=== PATIENT | female | born 1960 | race Caucasian/White ===

== ENCOUNTER 2020-12-29 14:26 | Inpatient (IN) | payer OTHER ==
[~2020-12-29] VITALS: Ht 162.6 cm; Wt 85.9 kg
[2020-12-29] MEDS ORDERED: IV NORMAL SALINE 1000ML BAG 1,000 ML IV ONE (14:30)
--- NOTE | 2020-12-29 15:27 | RAD ---
EXAM: Chest, single view. HISTORY: Fall. Syncope. COMPARISON: None. FINDINGS: A frontal view of the chest is obtained. There is lingular and left lower lobe atelectasis, infiltrate or scarring. There are suspected trace pleural effusions. The heart is normal in size. Th ere is no pneumothorax. IMPRESSION: Lingular and left lower lobe atelectasis, infiltrate or scarring likely superimposed on t race pleural effusions. Electronically signed by: Leena Hodge MD (12/29/2020 3:25 PM) [id number]
--- NOTE | 2020-12-29 15:42 | RAD ---
RS Compliance Statement: One or more of the following individualized dose reduction techniques were utilized for this examinat ion: 1. Automated exposure control 2. Adjustment of the mA and/or kV according to patient size 3. Use of iterative reconstruction technique CT HEAD AND CERVICAL SPINE WITHOUT CONTRAST History: Reason: FALL, OCCIPITAL LACERATION / Spl. Instructions: / History: Comparison: None. Procedure: Axial images are obtained of the head from the skull base through the vertex without IV co ntrast. Noncontrast helical CT of the cervical spine was performed. Axial, sagittal, and coronal rec onstructions were obtained. Findings: The ventricles and sulci are normal for the patient's age. There is mild periventricular white matter hypoattenuation. This is a nonspecific finding but is commonly due to chronic small vessel ischemic disease in a patient of this age. No mass-effect, midline shift, hemorrhage or obvious acute infarction is identified. Basilar cistern s are patent. Bone windows demonstrate no significant calvarial abnormality. Mild right occipital scalp hematoma. T here are a few foci of subcutaneous air. The visualized paranasal sinuses are clear. Mastoid air cells are well aerated. There is no evidence of acute fracture or acute malalignment of the cervical spine. The vertebral body height and alignment are maintained. There are no perched or jumped facet joints. There is mild degenerative endplate spurring. No significant disc space narrowing. There is mild fluid and air in the upper esophagus. Probable prior right carotid endarterectomy. The visualized lung apices are clear. IMPRESSION: 1. No acute intracranial abnormality. 2. No acute fracture of the cervical spine. Electronically signed by: Dave Montaño MD (12/29/2020 3:40 PM) [id number]
--- NOTE | 2020-12-29 15:46 | PHYS DOC ---
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 Patient states that she was amatory to the bathroom when she had a syncopal event where she fell down and struck the back of her head against the floor. EMS states they found her when she was conscious but mildly groggy. Noted with large amount of blood from the laceration to posterior scalp. Denies any preceding illness, nausea, vomiting, dizziness or lightheadedness. (YARIEL ACUÑA MD) Review of Systems Review of Systems Constitutional: Denies fever or chills [] Eyes: Denies change in visual acuity, redness, or eye pain [] HENT: Denies nasal congestion or sore throat [] Respiratory: Denies cough or shortness of breath [] Cardiovascular: No additional information not addressed in HPI [] GI: Denies abdominal pain, nausea, vomiting, bloody stools or diarrhea [] : Denies dysuria or hematuria [] Musculoskeletal: Denies back pain or joint pain [] Integument: Denies rash or skin lesions [] Neurologic: Denies headache, focal weakness or sensory changes [] Endocrine: Denies polyuria or polydipsia [] All other systems were reviewed and found to be within normal limits, except as documented in this note. (YARIEL ACUÑA MD) Current Medications Current Medications Current Medications Medications (Trade) Dose Ordered Sig/Anand Start Time Stop Time Status Last Admin Dose Admin Lidocaine/ Epinephrine (LIDOCAINE 2%-EPI 1:100,000 multi-dose) 20 ml 1X ONCE 12/29/20 16:15 12/29/20 16:16 DC 12/29/20 18:27 20 ML Morphine Sulfate (Morphine Sulfate) 4 mg PRN Q2HR PRN 12/29/20 18:45 12/30/20 18:44 Ondansetron HCl (Zofran) 4 mg PRN Q8HRS PRN 12/29/20 18:45 12/30/20 18:44 Sodium Chloride 1,000 ml @ 1,000 mls/hr 1X ONCE 12/29/20 14:30 12/29/20 15:29 DC 12/29/20 15:42 1,000 MLS/HR ([facility]) Allergies Allergies ([facility]) Physical Exam Physical Exam Constitutional: Well developed, well nourished, no acute distress, non-toxic a ppearance. [] HENT: Normocephalic, 5cm posterior scalp laceration, bilateral external ears normal, oropharynx moist, no oral exudates, nose normal. [] Eyes: PERRLA, EOMI, conjunctiva normal, no discharge. [] Neck: Normal range of motion, no tenderness, supple, no stridor. [] Cardiovascular:Heart rate regular rhythm, no murmur [] Lungs & Thorax: Bilateral breath sounds clear to auscultation [] Abdomen: Bowel sounds normal, soft, no tenderness, no masses, no pulsatile masses. [] Skin: Warm, dry, no erythema, no rash. [] Back: No tenderness, no CVA tenderness. [] Extremities: No tenderness, no cyanosis, no clubbing, ROM intact, no edema. [] Neurologic: Alert and oriented X 3, normal motor function, normal sensory function, no focal deficits noted. [] Psychologic: Affect normal, judgement normal, mood normal. [] (YARIEL ACUÑA MD) Current Patient Data Vital Signs Vital Signs Date Time Temp Pulse Resp B/P (MAP) Pulse Ox O2 Delivery O2 Flow Rate FiO2 12/29/20 19:48 60 20 158/72 (100) 96 Nasal Cannula 2.0 12/29/20 14:45 98.0 98.0 ([facility]) Lab Values Laboratory Tests Test 12/29/20 15:35 White Blood Count 6.3 x10^3/uL (4.0-11.0) Red Blood Count 4.70 x10^6/uL (3.50-5.40) Hemoglobin 14.1 g/dL (12.0-15.5) Hematocrit 44.0 % (36.0-47.0) Mean Corpuscular Volume 94 fL (79-100) Mean Corpuscular Hemoglobin 30 pg (25-35) Mean Corpuscular Hemoglobin Concent 32 g/dL (31-37) Red Cell Distribution Width 14.5 % (11.5-14.5) Platelet Count 124 x10^3/uL (140-400) L Neutrophils (%) (Auto) 85 % (31-73) H Lymphocytes (%) (Auto) 10 % (24-48) L Monocytes (%) (Auto) 4 % (0-9) Eosinophils (%) (Auto) 1 % (0-3) Basophils (%) (Auto) 1 % (0-3) Neutrophils # (Auto) 5.4 x10^3/uL (1.8-7.7) Lymphocytes # (Auto) 0.6 x10^3/uL (1.0-4.8) L Monocytes # (Auto) 0.2 x10^3/uL (0.0-1.1) Eosinophils # (Auto) 0.0 x10^3/uL (0.0-0.7) Basophils # (Auto) 0.1 x10^3/uL (0.0-0.2) Sodium Level 148 mmol/L (136-145) H Potassium Level 4.1 mmol/L (3.5-5.1) Chloride Level 112 mmol/L (98-107) H Carbon Dioxide Level 31 mmol/L (21-32) Anion Gap 5 (6-14) L Blood Urea Nitrogen 13 mg/dL (7-20) Creatinine 0.9 mg/dL (0.6-1.0) Estimated GFR (Cockcroft-Gault) 63.7 BUN/Creatinine Ratio 14 (6-20) Glucose Level 90 mg/dL (70-99) Calcium Level 8.9 mg/dL (8.5-10.1) Magnesium Level 2.4 mg/dL (1.8-2.4) Total Bilirubin 1.4 mg/dL (0.2-1.0) H Aspartate Amino Transferase (AST) 21 U/L (15-37) Alanine Aminotransferase (ALT) 21 U/L (14-59) Alkaline Phosphatase 185 U/L (46-116) H Total Protein 6.8 g/dL (6.4-8.2) Albumin 3.7 g/dL (3.4-5.0) Albumin/Globulin Ratio 1.2 (1.0-1.7) Laboratory Tests 12/29/20 15:35 Laboratory Tests 12/29/20 15:35 [facility] Lab Values Laboratory Tests Test 12/29/20 15:35 White Blood Count 6.3 x10^3/uL (4.0-11.0) Red Blood Count 4.70 x10^6/uL (3.50-5.40) Hemoglobin 14.1 g/dL (12.0-15.5) Hematocrit 44.0 % (36.0-47.0) Mean Corpuscular Volume 94 fL (79-100) Mean Corpuscular Hemoglobin 30 pg (25-35) Mean Corpuscular Hemoglobin Concent 32 g/dL (31-37) Red Cell Distribution Width 14.5 % (11.5-14.5) Platelet Count 124 x10^3/uL (140-400) L Neutrophils (%) (Auto) 85 % (31-73) H Lymphocytes (%) (Auto) 10 % (24-48) L Monocytes (%) (Auto) 4 % (0-9) Eosinophils (%) (Auto) 1 % (0-3) Basophils (%) (Auto) 1 % (0-3) Neutrophils # (Auto) 5.4 x10^3/uL (1.8-7.7) Lymphocytes # (Auto) 0.6 x10^3/uL (1.0-4.8) L Monocytes # (Auto) 0.2 x10^3/uL (0.0-1.1) Eosinophils # (Auto) 0.0 x10^3/uL (0.0-0.7) Basophils # (Auto) 0.1 x10^3/uL (0.0-0.2) Sodium Level 148 mmol/L (136-145) H Potassium Level 4.1 mmol/L (3.5-5.1) Chloride Level 112 mmol/L (98-107) H Carbon Dioxide Level 31 mmol/L (21-32) Anion Gap 5 (6-14) L Blood Urea Nitrogen 13 mg/dL (7-20) Creatinine 0.9 mg/dL (0.6-1.0) Estimated GFR (Cockcroft-Gault) 63.7 BUN/Creatinine Ratio 14 (6-20) Glucose Level 90 mg/dL (70-99) Calcium Level 8.9 mg/dL (8.5-10.1) Magnesium Level 2.4 mg/dL (1.8-2.4) Total Bilirubin 1.4 mg/dL (0.2-1.0) H Aspartate Amino Transferase (AST) 21 U/L (15-37) Alanine Aminotransferase (ALT) 21 U/L (14-59) Alkaline Phosphatase 185 U/L (46-116) H Total Protein 6.8 g/dL (6.4-8.2) Albumin 3.7 g/dL (3.4-5.0) Albumin/Globulin Ratio 1.2 (1.0-1.7) Laboratory Tests 12/29/20 15:35 Laboratory Tests 12/29/20 15:35 (YARIEL ACUÑA MD) EKG EKG [] (YARIEL ACUÑA MD) Radiology/Procedures Radiology/Procedures [] (YARIEL ACUÑA MD) Radiology/Procedures Indication: Posterior head laceration over scalp Procedure: The patient was placed in the appropriate position/LLR. The area was then copiously irrigated by RN. The laceration was closed with 7 gabino. The wound area was then dressed with triple antibiotic ointment. Total repaired wound length: approximately 5 cm (flap at proximal laceration, no skin at distal laceration-wound margins aligned as best as possible). Other Items: none The patient tolerated the procedure . Complications: None. Patient had been admitted to the hospitalist by Dr. Ravindra lei at shift change for syncope evaluation. I performed scalp laceration repair. [facility]) Course & Med Decision Making Course & Med Decision Making Pertinent Labs and Imaging studies reviewed. (See chart for details) 60F sent in the emergency department after a syncopal event with evidence of acute head trauma which does raise concern for any intracranial hemorrhage or other significant underlying trauma. Will initiate work-up to evaluate any underlying cause of the patient's syncope and perform a CT scan of the head cervical spine to make sure there is no significant underlying etiology. Patient does have a posterior head laceration that will require repair (YARIEL ACUÑA MD) Dragon Disclaimer Dragon Disclaimer This electronic medical record was generated, in whole or in part, using a voice recognition dictation system. (YARIEL ACUÑA MD) Departure Departure Impression: Primary Impression: Syncope Additional Impressions: Acute head injury Scalp laceration Brain concussion Disposition: ADMITTED INPATIENT Condition: STABLE Referrals: LORI XAVIER MD (PCP) Problem Qualifiers YARIEL ACUÑA MD Dec 29, 2020 15:46 GINI KAUR DO Dec 29, 2020 21:01
[2020-12-29 15:52] LABS: BASO # 0.1 x10^3/uL (0.0-0.2); BASO % 1 % (0-3); EOS % 1 % (0-3); HEMOGLOBIN 14.1 g/dL (12.0-15.5); LYMPH # 0.6 x10^3/uL (1.0-4.8); LYMPH % 10 % (24-48); MEAN CORPUSCULAR HEMOGLOBIN 30 pg (25-35); MEAN CORPUSCULAR HGB CONC 32 g/dL (31-37); MEAN CORPUSCULAR VOLUME 94 fL (79-100); MONO # 0.2 x10^3/uL (0.0-1.1); MONO % 4 % (0-9); NEUT # 5.4 x10^3/uL (1.8-7.7); NEUT % 85 % (31-73); PLATELET COUNT 124 x10^3/uL (140-400); RED CELL DISTRIBUTION WIDTH 14.5 % (11.5-14.5); WHITE BLOOD COUNT 6.3 x10^3/uL (4.0-11.0)
--- NOTE | 2020-12-29 15:54 | EKG ---
[facility] [address] [place] [address] Test Date: 2020-12-29 Test Time: 14:35:26 Pat Name: DONALD CREWS Department: Room: Gender: F Transition Coach: EARLINE : 1960 Requested By: YARIEL ACUÑA Order Number: [id number] Reading MD: Measurements Intervals [place] Rate: 61 P: 30 AK: 180 QRS: -31 QRSD: 130 T: 34 QT: 378 QTc: 382 Interpretive Statements SINUS RHYTHM ABNORMAL LEFT AXIS DEVIATION NON SPECIFIC INTRAVENTRICULAR BLOCK ABNORMAL ECG RI6.02 No previous ECG available for comparison
[2020-12-29 16:03] LABS: CALCIUM 8.9 mg/dL (8.5-10.1); CREATININE 0.9 mg/dL (0.6-1.0); GFR 63.7; POTASSIUM 4.1 mmol/L (3.5-5.1)
[2020-12-29 16:09] LABS: ALBUMIN 3.7 g/dL (3.4-5.0); ALBUMIN/GLOBULIN RATIO 1.2 (1.0-1.7); MAGNESIUM 2.4 mg/dL (1.8-2.4); TOTAL BILIRUBIN 1.4 mg/dL (0.2-1.0); TOTAL PROTEIN 6.8 g/dL (6.4-8.2)
[2020-12-29] MEDS ORDERED: LIDOCAINE 2%/EPI 1:100,000 20 ML VIAL. INJ ONE (16:15)
[2020-12-29] MEDS ORDERED: MORPHINE SULFATE 4 MG/ML VIAL. IV PRN (18:45)
[2020-12-29] MEDS ORDERED: ONDANSETRON PF 4 MG/2 ML VIAL. IV PRN (18:45)
--- NOTE | 2020-12-29 19:51 | PDOC1 ---
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 Patient states that she was amatory to the bathroom when she had a syncopal event where she fell down and struck the back of her head against the floor. EMS states they found her when she was conscious but mildly groggy. Noted with large amount of blood from the laceration to posterior scalp. Denies any preceding illness, nausea, vomiting, dizziness or lightheadedness. Past Medical/Surgical History: PMH/PSH: Past Medical History: Anxiety, myotonic dystrophy, LBBB, tremors Past Surgical History: Tubal ligation, facial tumor, laparascopy Allergies: Allergies: Coded Allergies: Sulfa (Sulfonamide Antibiotics) (Verified Allergy, Unknown, 12/29/20) Family History: Family History: Reviewed with no relevant findings Social History: Social History: Smoking Status: Former Smoker Alcohol Use: None Current Medications: Current Medications Current Medications Sodium Chloride 1,000 ml @ 1,000 mls/hr 1X ONCE IV Last administered on 12/29/20at 15:42; Start 12/29/20 at 14:30; Stop 12/29/20 at 15:29; Status DC Lidocaine/ Epinephrine (LIDOCAINE 2%-EPI 1:100,000 multi-dose) 20 ml 1X ONCE INJ Last administered on 12/29/20at 18:27; Start 12/29/20 at 16:15; Stop 12/29/20 at 16:16; Status DC Ondansetron HCl (Zofran) 4 mg PRN Q8HRS PRN IV NAUSEA/VOMITING; Start 12/29/20 at 18:45; Stop 12/30/20 at 18:44 Morphine Sulfate (Morphine Sulfate) 4 mg PRN Q2HR PRN IV PAIN; Start 12/29/20 at 18:45; Stop 12/30/20 at 18:44 ROS: Review of Systems Review of System REVIEW OF SYSTEMS: GENERAL: Denies weakness SKIN: No bruising, hair changes or rashes. EYES: No blurred, double or loss of vision. NOSE AND THROAT: No history of nosebleeds, hoarseness or sore throat. HEART: No history of palpitations, chest pain or shortness of breath on exertion. LUNGS: Denies cough, hemoptysis, wheezing or shortness of breath. GASTROINTESTINAL: Denies changes in appetite, nausea, vomiting, diarrhea or constipation. GENITOURINARY: No history of frequency, urgency, hesitancy or nocturia. NEUROLOGIC: Denies history of numbness, tingling, or tremor. PSYCHIATRIC: No history of panic, anxiety or depression. ENDOCRINE: No history of heat or cold intolerance, polyuria or polydipsia. EXTREMITIES: Denies joint pain, pain on walking or stiffness. Physical Exam: Vital Signs: Vital Signs Date Time Temp Pulse Resp B/P (MAP) Pulse Ox O2 Delivery O2 Flow Rate FiO2 12/29/20 14:45 98.0 68 16 139/83 (101) 88 Room Air 98.0 Physcial Exam: GEN: No apparent distress. Alert and oriented HEENT: Normal cephalic, atraumatic, external auditory canals are patent EYES: Extraocular muscles are intact, pupil are equally round and reactive to light and accommodation MUSCULOSKELETAL: Well developed , well nourished, good range of motion ENDOCRINE: No thyromegaly was palpated LYMPHATICS: No cervical chain or axillary nodes were noted HEMATOPOIETIC: No bruising NECK: Supple, no JVD, no thyromegaly was noted LUNGS: Clear to auscultation in all lung minor without rhonchi or wheezing HEART: RRR, S!, S2 present. Peripheral pulses intact, no obvious murmurs noted ABDOMEN: Soft, nontender. Positive bowel sounds, no organomegaly, normal bowel sounds EXTREMITIES: Without clubbing, cyanosis, or edema. Pedal pulses intact. Negative Homans sign NEUROLOGIC: Normal speech and tone. A&O x 3, moves all extremities, no obvious focal deficits PSYCHIATRIC: Normal affect, normal mood. Stable SKIN: No ulcerations or rashes, good skin turgor, no jaundice VASCULAR: Good capillary refill, neurovascular bundle appears to be intact Labs: Labs: Laboratory Tests Test 12/29/20 15:35 White Blood Count 6.3 x10^3/uL (4.0-11.0) Red Blood Count 4.70 x10^6/uL (3.50-5.40) Hemoglobin 14.1 g/dL (12.0-15.5) Hematocrit 44.0 % (36.0-47.0) Mean Corpuscular Volume 94 fL (79-100) Mean Corpuscular Hemoglobin 30 pg (25-35) Mean Corpuscular Hemoglobin Concent 32 g/dL (31-37) Red Cell Distribution Width 14.5 % (11.5-14.5) Platelet Count 124 x10^3/uL (140-400) Neutrophils (%) (Auto) 85 % (31-73) Lymphocytes (%) (Auto) 10 % (24-48) Monocytes (%) (Auto) 4 % (0-9) Eosinophils (%) (Auto) 1 % (0-3) Basophils (%) (Auto) 1 % (0-3) Neutrophils # (Auto) 5.4 x10^3/uL (1.8-7.7) Lymphocytes # (Auto) 0.6 x10^3/uL (1.0-4.8) Monocytes # (Auto) 0.2 x10^3/uL (0.0-1.1) Eosinophils # (Auto) 0.0 x10^3/uL (0.0-0.7) Basophils # (Auto) 0.1 x10^3/uL (0.0-0.2) Sodium Level 148 mmol/L (136-145) Potassium Level 4.1 mmol/L (3.5-5.1) Chloride Level 112 mmol/L (98-107) Carbon Dioxide Level 31 mmol/L (21-32) Anion Gap 5 (6-14) Blood Urea Nitrogen 13 mg/dL (7-20) Creatinine 0.9 mg/dL (0.6-1.0) Estimated GFR (Cockcroft-Gault) 63.7 BUN/Creatinine Ratio 14 (6-20) Glucose Level 90 mg/dL (70-99) Calcium Level 8.9 mg/dL (8.5-10.1) Magnesium Level 2.4 mg/dL (1.8-2.4) Total Bilirubin 1.4 mg/dL (0.2-1.0) Aspartate Amino Transf (AST/SGOT) 21 U/L (15-37) Alanine Aminotransferase (ALT/SGPT) 21 U/L (14-59) Alkaline Phosphatase 185 U/L (46-116) Total Protein 6.8 g/dL (6.4-8.2) Albumin 3.7 g/dL (3.4-5.0) Albumin/Globulin Ratio 1.2 (1.0-1.7) Laboratory Tests Test 12/29/20 15:35 White Blood Count 6.3 x10^3/uL (4.0-11.0) Red Blood Count 4.70 x10^6/uL (3.50-5.40) Hemoglobin 14.1 g/dL (12.0-15.5) Hematocrit 44.0 % (36.0-47.0) Mean Corpuscular Volume 94 fL (79-100) Mean Corpuscular Hemoglobin 30 pg (25-35) Mean Corpuscular Hemoglobin Concent 32 g/dL (31-37) Red Cell Distribution Width 14.5 % (11.5-14.5) Platelet Count 124 x10^3/uL (140-400) Neutrophils (%) (Auto) 85 % (31-73) Lymphocytes (%) (Auto) 10 % (24-48) Monocytes (%) (Auto) 4 % (0-9) Eosinophils (%) (Auto) 1 % (0-3) Basophils (%) (Auto) 1 % (0-3) Neutrophils # (Auto) 5.4 x10^3/uL (1.8-7.7) Lymphocytes # (Auto) 0.6 x10^3/uL (1.0-4.8) Monocytes # (Auto) 0.2 x10^3/uL (0.0-1.1) Eosinophils # (Auto) 0.0 x10^3/uL (0.0-0.7) Basophils # (Auto) 0.1 x10^3/uL (0.0-0.2) Sodium Level 148 mmol/L (136-145) Potassium Level 4.1 mmol/L (3.5-5.1) Chloride Level 112 mmol/L (98-107) Carbon Dioxide Level 31 mmol/L (21-32) Anion Gap 5 (6-14) Blood Urea Nitrogen 13 mg/dL (7-20) Creatinine 0.9 mg/dL (0.6-1.0) Estimated GFR (Cockcroft-Gault) 63.7 BUN/Creatinine Ratio 14 (6-20) Glucose Level 90 mg/dL (70-99) Calcium Level 8.9 mg/dL (8.5-10.1) Magnesium Level 2.4 mg/dL (1.8-2.4) Total Bilirubin 1.4 mg/dL (0.2-1.0) Aspartate Amino Transf (AST/SGOT) 21 U/L (15-37) Alanine Aminotransferase (ALT/SGPT) 21 U/L (14-59) Alkaline Phosphatase 185 U/L (46-116) Total Protein 6.8 g/dL (6.4-8.2) Albumin 3.7 g/dL (3.4-5.0) Albumin/Globulin Ratio 1.2 (1.0-1.7) Images: Images PROCEDURE: PORTABLE CHEST 1V IMPRESSION: Lingular and left lower lobe atelectasis, infiltrate or scarring likely superimposed on trace pleural effusions. . Negative CT head Assessment/Plan Assessment/Plan Syncope possible vasovagal, orthostatic hypotension or cardiovascular etiology Hypernatremia, hyperchloremia suggestive of dehydration Elevated alkaline phosphatase History of myotonic dystrophy, patient uses trilogy at home History of left bundle branch block Admit to medicine for further work-up Cardiology consult Pending echocardiogram Continue telemetry monitoring Fall precautions Orthostatic vital signs Hold all centrally acting medications Pending medication reconciliation Ambulation for DVT prophylaxis Protonix GI prophylaxis ADA diet Full code Discussed with RN and SW Disposition inpatient management as above Surrogate decision maker is the Justifications for Admission Other Justification JEB GLOVER MD Dec 29, 2020 19:51
[2020-12-29] MEDS ORDERED: DEXTROSE 50% 25 GM / 50ML DISP.SYRIN. IV PRN (20:00)
[2020-12-29] MEDS ORDERED: SENNOSIDES 8.6 MG TABLET PO PRN (20:00)
[2020-12-29] MEDS ORDERED: ONDANSETRON PF 4 MG/2 ML VIAL. IVP PRN (20:00)
[2020-12-29] MEDS ORDERED: DOCUSATE SODIUM 100 MG CAPSULE. PO PRN (20:00)
[2020-12-29] MEDS ORDERED: ACETAMINOPHEN 325 MG TABLET. PO PRN (20:00)
[2020-12-29] MEDS ORDERED: NEOMY/BACITR/POLYMYXIN OINT PACKET. TP ONE (21:30)
[2020-12-29 22:30] VITALS: BP 101/63
[2020-12-29] MEDS: IV NORMAL SALINE 1000ML BAG 1,000 ML IV SCH (23:11)
[2020-12-30] MEDS ORDERED: ONDA4TAB12 PO (01:00)
[2020-12-30] MEDS ORDERED: DIAZ5TAB4 PO (01:00)
[2020-12-30] MEDS ORDERED: TIOT18CA IH (01:00)
[2020-12-30] MEDS ORDERED: FOLI0.8C PO (01:00)
[2020-12-30] MEDS ORDERED: CYAN500T17 PO (01:00)
[2020-12-30] MEDS ORDERED: VITA1TAB31 PO (01:00)
[2020-12-30] MEDS ORDERED: LOPE2TAB27 PO (01:00)
[2020-12-30 03:30] VITALS: BP 102/53
[2020-12-30] MEDS: IV NORMAL SALINE 1000ML BAG 1,000 ML IV SCH (05:58)
[2020-12-30 07:00] VITALS: BP 115/61
[2020-12-30 07:05] VITALS: BP 140/78
[2020-12-30 07:10] VITALS: BP 139/66
[2020-12-30 07:18] LABS: BASO % 1 % (0-3); EOS # 0.1 x10^3/uL (0.0-0.7); EOS % 1 % (0-3); HEMATOCRIT 43.4 % (36.0-47.0); HEMOGLOBIN 13.9 g/dL (12.0-15.5); LYMPH # 0.9 x10^3/uL (1.0-4.8); LYMPH % 16 % (24-48); MEAN CORPUSCULAR HEMOGLOBIN 30 pg (25-35); MEAN CORPUSCULAR HGB CONC 32 g/dL (31-37); MEAN CORPUSCULAR VOLUME 95 fL (79-100); MONO # 0.3 x10^3/uL (0.0-1.1); MONO % 5 % (0-9); NEUT # 4.4 x10^3/uL (1.8-7.7); NEUT % 78 % (31-73); PLATELET COUNT 118 x10^3/uL (140-400); RED BLOOD COUNT 4.59 x10^6/uL (3.50-5.40); RED CELL DISTRIBUTION WIDTH 14.6 % (11.5-14.5); WHITE BLOOD COUNT 5.7 x10^3/uL (4.0-11.0)
[2020-12-30 08:03] LABS: CALCIUM 8.5 mg/dL (8.5-10.1); CREATININE 0.7 mg/dL (0.6-1.0); GFR 85.1; MAGNESIUM 2.5 mg/dL (1.8-2.4); POTASSIUM 3.8 mmol/L (3.5-5.1)
[2020-12-30 11:00] VITALS: BP 107/65
--- NOTE | 2020-12-30 11:48 | PDOC ---
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 Patient states that she was amatory to the bathroom when she had a syncopal event where she fell down and struck the back of her head against the floor. EMS states they found her when she was conscious but mildly groggy. Noted with large amount of blood from the laceration to posterior scalp. Denies any preceding illness, nausea, vomiting, dizziness or lightheadedness. Vitals/I&O Vitals/I&O: Vital Signs Date Time Temp Pulse Resp B/P (MAP) Pulse Ox O2 Delivery O2 Flow Rate FiO2 12/30/20 11:00 97.9 65 20 107/65 (79) 97 Nasal Cannula 2.0 97.9 I & O 12/29/20 12/29/20 12/30/20 15:00 23:00 07:00 Intake Total 1000 ml 180 ml Output Total 200 ml Balance 1000 ml -20 ml Physical Exam General: Other (sleeping) Heart: Regular rate Lungs: Clear Abdomen: Soft Extremities: No cyanosis Skin: No rashes Labs Labs: Laboratory Tests Test 12/29/20 15:35 12/30/20 06:10 White Blood Count 6.3 x10^3/uL (4.0-11.0) 5.7 x10^3/uL (4.0-11.0) Red Blood Count 4.70 x10^6/uL (3.50-5.40) 4.59 x10^6/uL (3.50-5.40) Hemoglobin 14.1 g/dL (12.0-15.5) 13.9 g/dL (12.0-15.5) Hematocrit 44.0 % (36.0-47.0) 43.4 % (36.0-47.0) Mean Corpuscular Volume 94 fL (79-100) 95 fL (79-100) Mean Corpuscular Hemoglobin 30 pg (25-35) 30 pg (25-35) Mean Corpuscular Hemoglobin Concent 32 g/dL (31-37) 32 g/dL (31-37) Red Cell Distribution Width 14.5 % (11.5-14.5) 14.6 % (11.5-14.5) Platelet Count 124 x10^3/uL (140-400) 118 x10^3/uL (140-400) Neutrophils (%) (Auto) 85 % (31-73) 78 % (31-73) Lymphocytes (%) (Auto) 10 % (24-48) 16 % (24-48) Monocytes (%) (Auto) 4 % (0-9) 5 % (0-9) Eosinophils (%) (Auto) 1 % (0-3) 1 % (0-3) Basophils (%) (Auto) 1 % (0-3) 1 % (0-3) Neutrophils # (Auto) 5.4 x10^3/uL (1.8-7.7) 4.4 x10^3/uL (1.8-7.7) Lymphocytes # (Auto) 0.6 x10^3/uL (1.0-4.8) 0.9 x10^3/uL (1.0-4.8) Monocytes # (Auto) 0.2 x10^3/uL (0.0-1.1) 0.3 x10^3/uL (0.0-1.1) Eosinophils # (Auto) 0.0 x10^3/uL (0.0-0.7) 0.1 x10^3/uL (0.0-0.7) Basophils # (Auto) 0.1 x10^3/uL (0.0-0.2) 0.0 x10^3/uL (0.0-0.2) Sodium Level 148 mmol/L (136-145) 151 mmol/L (136-145) Potassium Level 4.1 mmol/L (3.5-5.1) 3.8 mmol/L (3.5-5.1) Chloride Level 112 mmol/L (98-107) 113 mmol/L (98-107) Carbon Dioxide Level 31 mmol/L (21-32) 30 mmol/L (21-32) Anion Gap 5 (6-14) 8 (6-14) Blood Urea Nitrogen 13 mg/dL (7-20) 11 mg/dL (7-20) Creatinine 0.9 mg/dL (0.6-1.0) 0.7 mg/dL (0.6-1.0) Estimated GFR (Cockcroft-Gault) 63.7 85.1 BUN/Creatinine Ratio 14 (6-20) Glucose Level 90 mg/dL (70-99) 74 mg/dL (70-99) Calcium Level 8.9 mg/dL (8.5-10.1) 8.5 mg/dL (8.5-10.1) Magnesium Level 2.4 mg/dL (1.8-2.4) 2.5 mg/dL (1.8-2.4) Total Bilirubin 1.4 mg/dL (0.2-1.0) Aspartate Amino Transf (AST/SGOT) 21 U/L (15-37) Alanine Aminotransferase (ALT/SGPT) 21 U/L (14-59) Alkaline Phosphatase 185 U/L (46-116) Total Protein 6.8 g/dL (6.4-8.2) Albumin 3.7 g/dL (3.4-5.0) Albumin/Globulin Ratio 1.2 (1.0-1.7) Phosphorus Level 3.0 mg/dL (2.6-4.7) Assessment and Plan Assessmemt and Plan Problems Medical Problems: (1) Acute head injury Status: Acute (2) Brain concussion Status: Acute (3) Scalp laceration Status: Acute (4) Syncope Status: Acute Assessment Syncope possible vasovagal, orthostatic hypotension or cardiovascular etiology Hypernatremia, hyperchloremia suggestive of dehydration Elevated alkaline phosphatase History of myotonic dystrophy, 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 Medications: Current Medications Medications (Trade) Dose Ordered Sig/Anand Route PRN Reason Start Time Stop Time Status Last Admin Dose Admin Sodium Chloride 1,000 ml @ 1,000 mls/hr 1X ONCE IV 12/29/20 14:30 12/29/20 15:29 DC 12/29/20 15:42 Lidocaine/ Epinephrine (LIDOCAINE 2%-EPI 1:100,000 multi-dose) 20 ml 1X ONCE INJ 12/29/20 16:15 12/29/20 16:16 DC 12/29/20 18:27 Sodium Chloride 1,000 ml @ 100 mls/hr Q10H IV 12/29/20 20:00 12/30/20 05:58 Acetaminophen (Tylenol) 650 mg PRN Q4HRS PRN PO TEMP OVER 100.4F OR MILD PAIN 12/29/20 20:00 12/29/20 21:46 Neomycin/ Polymyxin/ Bacitracin (Triple Antibiotic Ointment) 1 pkt 1X ONCE TP 12/29/20 21:30 12/29/20 21:31 DC 12/29/20 22:02 Justifications for Admission Syncope Indications Is patient dehydrated?: Yes Justification for admission: There is concern that patient may be severely dehydrated accounting for the syncope. Patient needs inpatient level of care for further evaluation and management. Other Justification PATIENCE SHARMA III DO Dec 30, 2020 11:48
--- NOTE | 2020-12-30 12:02 | PDOC2 ---
TIAN MOSHER [employer]MENTATION LEAD 12/30/20 1202: CARDIAC CONSULT DATE OF CONSULT Date of Consult DATE: 12/30/20 TIME: 11:59 REASON FOR CONSULT Reason for Consult: syncope REFERRING PHYSICIAN Referring Physician: Dr. Roman SOURCE Source: Chart review, Patient HISTORY OF PRESENT ILLNESS HISTORY OF PRESENT ILLNESS This is a 60 yo female, with a history of myotonic dystrophy, who presented secondary to syncope episode while ambulated with walker yesterday at [facility]. Patient reports that she was walking and just passed out without warning. Fell backwards, striking her head. Suffered laceration. Patient denies any precipita ting dizziness, diaphoresis, palpitations, or chest pain. Reports having multiple similar episodes, which have all been without warning. 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) FAMILY HISTORY Family History: Diabetes, Other (cirrhosis, myotonic dystrophy) SOCIAL HISTORY Smoke: No ALCOHOL: none Drugs: None Lives: with Family CURRENT MEDICATIONS CURRENT MEDICATIONS Current Medications Medications (Trade) Dose Ordered Sig/Anand Route PRN Reason Start Time Stop Time Status Last Admin Dose Admin Sodium Chloride 1,000 ml @ 1,000 mls/hr 1X ONCE IV 12/29/20 14:30 12/29/20 15:29 DC 12/29/20 15:42 Lidocaine/ Epinephrine (LIDOCAINE 2%-EPI 1:100,000 multi-dose) 20 ml 1X ONCE INJ 12/29/20 16:15 12/29/20 16:16 DC 12/29/20 18:27 Sodium Chloride 1,000 ml @ 100 mls/hr Q10H IV 12/29/20 20:00 12/30/20 05:58 Acetaminophen (Tylenol) 650 mg PRN Q4HRS PRN PO TEMP OVER 100.4F OR MILD PAIN 12/29/20 20:00 12/29/20 21:46 Neomycin/ Polymyxin/ Bacitracin (Triple Antibiotic Ointment) 1 pkt 1X ONCE TP 12/29/20 21:30 12/29/20 21:31 DC 12/29/20 22:02 ALLERGIES ALLERGIES: Coded Allergies: Sulfa (Sulfonamide Antibiotics) (Verified Allergy, Intermediate, 12/29/20) ROS Review of System 14 point ROS conducted with pertinent positives noted above in HPI PHYSICAL EXAM General: Alert, Oriented X3, Cooperative, No acute distress HEENT: Atraumatic Lungs: Clear to auscultation Heart: Regular rate Abdomen: Soft, No tenderness Extremities: No edema, Normal pulses Skin: No significant lesion Neuro: Normal speech, Sensation intact Psych/Mental Status: Mood NL MUSCULOSKELETAL: Osteoarthritic changes both hands VITALS/I&O VITALS/I&O: Vital Signs Date Time Temp Pulse Resp B/P (MAP) Pulse Ox O2 Delivery O2 Flow Rate FiO2 12/30/20 11:00 97.9 65 20 107/65 (79) 97 Nasal Cannula 2.0 97.9 I & O 12/29/20 12/29/20 12/30/20 14:59 22:59 06:59 Intake Total 1000 ml 180 ml Output Total 200 ml Balance 1000 ml -20 ml LABS Lab: Laboratory Tests Test 12/29/20 15:35 12/30/20 06:10 White Blood Count 6.3 x10^3/uL (4.0-11.0) 5.7 x10^3/uL (4.0-11.0) Red Blood Count 4.70 x10^6/uL (3.50-5.40) 4.59 x10^6/uL (3.50-5.40) Hemoglobin 14.1 g/dL (12.0-15.5) 13.9 g/dL (12.0-15.5) Hematocrit 44.0 % (36.0-47.0) 43.4 % (36.0-47.0) Mean Corpuscular Volume 94 fL (79-100) 95 fL (79-100) Mean Corpuscular Hemoglobin 30 pg (25-35) 30 pg (25-35) Mean Corpuscular Hemoglobin Concent 32 g/dL (31-37) 32 g/dL (31-37) Red Cell Distribution Width 14.5 % (11.5-14.5) 14.6 % (11.5-14.5) H Platelet Count 124 x10^3/uL (140-400) L 118 x10^3/uL (140-400) L Neutrophils (%) (Auto) 85 % (31-73) H 78 % (31-73) H Lymphocytes (%) (Auto) 10 % (24-48) L 16 % (24-48) L Monocytes (%) (Auto) 4 % (0-9) 5 % (0-9) Eosinophils (%) (Auto) 1 % (0-3) 1 % (0-3) Basophils (%) (Auto) 1 % (0-3) 1 % (0-3) Neutrophils # (Auto) 5.4 x10^3/uL (1.8-7.7) 4.4 x10^3/uL (1.8-7.7) Lymphocytes # (Auto) 0.6 x10^3/uL (1.0-4.8) L 0.9 x10^3/uL (1.0-4.8) L Monocytes # (Auto) 0.2 x10^3/uL (0.0-1.1) 0.3 x10^3/uL (0.0-1.1) Eosinophils # (Auto) 0.0 x10^3/uL (0.0-0.7) 0.1 x10^3/uL (0.0-0.7) Basophils # (Auto) 0.1 x10^3/uL (0.0-0.2) 0.0 x10^3/uL (0.0-0.2) Sodium Level 148 mmol/L (136-145) H 151 mmol/L (136-145) H Potassium Level 4.1 mmol/L (3.5-5.1) 3.8 mmol/L (3.5-5.1) Chloride Level 112 mmol/L (98-107) H 113 mmol/L (98-107) H Carbon Dioxide Level 31 mmol/L (21-32) 30 mmol/L (21-32) Anion Gap 5 (6-14) L 8 (6-14) Blood Urea Nitrogen 13 mg/dL (7-20) 11 mg/dL (7-20) Creatinine 0.9 mg/dL (0.6-1.0) 0.7 mg/dL (0.6-1.0) Estimated GFR (Cockcroft-Gault) 63.7 85.1 BUN/Creatinine Ratio 14 (6-20) Glucose Level 90 mg/dL (70-99) 74 mg/dL (70-99) Calcium Level 8.9 mg/dL (8.5-10.1) 8.5 mg/dL (8.5-10.1) Magnesium Level 2.4 mg/dL (1.8-2.4) 2.5 mg/dL (1.8-2.4) H Total Bilirubin 1.4 mg/dL (0.2-1.0) H Aspartate Amino Transferase (AST) 21 U/L (15-37) Alanine Aminotransferase (ALT) 21 U/L (14-59) Alkaline Phosphatase 185 U/L (46-116) H Total Protein 6.8 g/dL (6.4-8.2) Albumin 3.7 g/dL (3.4-5.0) Albumin/Globulin Ratio 1.2 (1.0-1.7) Phosphorus Level 3.0 mg/dL (2.6-4.7) Laboratory Tests 12/29/20 15:35 12/30/20 06:10 Laboratory Tests 12/29/20 15:35 12/30/20 06:10 EKG EKG 12/20/17 - HOLTER WEARABLE ECG MONITOR CONNECT + SCAN Interpretation Summary A 48 hour Holter monitor demonstrates sinus at 451 31 bpm with a mean of 70 bpm. There are 22 isolated APD's there are no couplets. There is a single 9 beat run of atrial tachycardia that averages about 127 bpm. There is no A. fib or a flutter. There are 7 isolated PVCs with no couplets and no runs AV conduction is normal There are no pauses ECHOCARDIOGRAM ECHOCARDIOGRAM 01/22/17 - 2-D + DOPPLER ECHOCARDIOGRAM Interpretation Summary Normal LV size and systolic function. Normal LV diastolic function. Normal RV size and systolic function.Prominent moderator band is seen. No significant valvular abnormalities are noted. Normal pulmonary artery pressure. No pericardial effusion is seen. ASSESSMENT/PLAN ASSESSMENT/PLAN 1. Syncope with posterior scalp laceration. ? vasovagal. Reports recurrent syncope without warning. CT head without acute findings. Orthos negative. No acute events on telemetry 2. Myotonic dystrophy 3. Chronic LBBB 4. Hyperlipidemia 5. Hypernatremia Recommendations Echo to assess LV systolic function, r/o cardiac anomalies Consider outpatient event monitor to r/o contributing arrhythmias Supportive care MICHELLE HAYDEN MD 12/30/20 2341: CARDIAC CONSULT ASSESSMENT/PLAN ASSESSMENT/PLAN Patient seen and evaluated. I agree with our nurse practitioners assessment and plan. Syncope with posterior scalp laceration. ? vasovagal. CT head without acute findings. Orthos negative. No acute events on telemetry. The patient however reports recurrent symptoms. We will continue on monitoring. Check an echocardiogram. Consider outpatient monitoring. Myotonic dystrophy Chronic LBBB Hyperlipidemia. Continue present treatment. Hypernatremia. Replace and monitor. TIAN MOSHER APRN Dec 30, 2020 12:02 MICHELLE HAYDEN MD Dec 30, 2020 16:51
[2020-12-30 12:24] LABS: CHOLESTEROL/HDL RATIO 3.4
[2020-12-30 15:00] VITALS: BP 147/87
--- NOTE | 2020-12-30 15:12 | CARD ---
MR#: [id number] Date of Study: 12/30/2020 Ordering Physician: TIAN MOSHER, Referring Physician: TIAN MOSHER, Tech: Genny Farooq, [facility] APPROVED REPORT EXAM: Two-dimensional and M-mode echocardiogram with Doppler and color Doppler. Other Information Quality : AverageHR: 72bpm INDICATION Syncope 2D DIMENSIONS RVDd2.9 (2.9-3.5cm)Left Atrium(2D)3.2 (1.6-4.0cm) IVSd1.0 (0.7-1.1cm)Aortic Root(2D)2.8 (2.0-3.7cm) LVDd4.6 (3.9-5.9cm)LVOT Diameter1.9 (1.8-2.4cm) PWd0.9 (0.7-1.1cm)LVDs2.6 (2.5-4.0cm) FS (%) 44.9 %SV76.0 ml LVEF(%)76.3 (>50%) Aortic Valve AoV Peak Addy.172.7cm/sAoV VTI31.0cm AO Peak GR.11.9mmHgLVOT Peak Addy.176.6cm/s LVOT VTI 33.97cmAO Mean GR.6mmHg BRIJESH (VMAX)2.94kv6JZC (VTI)3.16cm2 Mitral Valve MV E Qvzthwmx14.6cm/sMV DECEL CURU582zr MV A Dhkxdwwi59.4cm/sMV TNE25ec E/A Ratio1.1MVA (PHT)4.36cm2 TDI E/Lateral E'9.6E/Medial E'8.6 Pulmonary Valve PV Peak Wawafbeu046.7cm/sPV Peak Grad.4mmHg Tricuspid Valve TR P. Qzijqkao194gd/sRAP [id number] TR Peak Gr.53tjWxCFKU45aeWi Pulmonary Vein S1 Wyxctadb98.7cm/sD2 Gspsnzti47.2cm/s PVa hpumtwry535wasv LEFT VENTRICLE The left ventricle is normal size. There is normal left ventricular wall thickness. The left ventricu lar systolic function is normal. The Ejection Fraction is 60-65%. There is normal LV segmental wall m otion. RIGHT VENTRICLE The right ventricle is normal size. There is normal right ventricular wall thickness. The right ventr icular systolic function is normal. ATRIA The left atrium size is normal. The right atrium size is normal. The interatrial septum is intact wit h no evidence for an atrial septal defect or patent foramen ovale as noted on 2-D or Doppler imaging. AORTIC VALVE The aortic valve is normal in structure and function. Doppler and Color Flow revealed no significant aortic regurgitation. There is no significant aortic valvular stenosis. Calculated aortic valve area is 2.94 cm2 with maximum pressure gradient of 15 mmHg and mean pressure gradient of 8 mmHg. MITRAL VALVE The mitral valve is normal in structure and function. There is no evidence of mitral valve prolapse. There is no mitral valve stenosis. Doppler and Color-flow revealed trace mitral regurgitation. TRICUSPID VALVE The tricuspid valve is normal in structure and function. Doppler and Color Flow revealed trace tricus pid regurgitation with an estimated PAP of 36 mmHg. There is no tricuspid valve stenosis. PULMONIC VALVE The pulmonic valve is not well visualized. Doppler and Color Flow revealed trace pulmonic valvular re gurgitation. GREAT VESSELS The aortic root is normal in size. The ascending aorta is normal in size. The IVC is normal in size a nd collapses >50% with inspiration. PERICARDIAL EFFUSION There is no evidence of significant pericardial effusion. Critical Notification Critical Value: No <Conclusion> The left ventricular systolic function is normal. The Ejection Fraction is 60-65%. There is normal LV segmental wall motion. Trace mitral regurgitation. Trace tricuspid regurgitation with an estimated PAP of 36 mmHg. There is no evidence of significant pericardial effusion. Signed by : Alfred Kuo, Electronically Approved : 12/30/2020 15:11:54
--- NOTE | 2020-12-30 15:32 | NUR ---
SW following. Discussed with RN, pt from home, room air, regular diet. PT/OT ordered. Cardiology following. RN advised no SW needs at this time. SW will continue to follow.
[2020-12-30] MEDS ORDERED: ONDANSETRON ODT 4 MG TAB.RAPDIS. PO PRN (16:45)
[2020-12-30] MEDS ORDERED: diazePAM 5 MG TABLET PO PRN (16:45)
--- NOTE | 2020-12-30 18:30 | NUR ---
DISCHARGED PATIENT TO HOME. DISCHARGE INSTRUCTIONS GIVEN. PIV AND HEART MONITOR REMOVED. ESCORTED PATIENT OFF UNIT PER WHEELCHAIR INTO A PRIVATE VEHICLE.
--- NOTE | 2020-12-30 19:39 | PDOC3 ---
Discharge Summary Visit Information Date of Admission: Dec 29, 2020 Date of Discharge: Dec 30, 2020 Final Diagnosis Problems Medical Problems: (1) Acute head injury Status: Acute (2) Brain concussion Status: Acute (3) Scalp laceration Status: Acute (4) Syncope Status: Acute Brief Hospital Course Allergies Allergies Coded Allergies Type Severity Reaction Last Updated Verified Sulfa (Sulfonamide Antibiotics) Allergy Intermediate 12/29/20 Yes Vital Signs Vital Signs Date Time Temp Pulse Resp B/P (MAP) Pulse Ox O2 Delivery O2 Flow Rate FiO2 12/30/20 15:00 97.9 72 20 147/87 (107) 90 Nasal Cannula 2.0 97.9 Lab Results Laboratory Tests Test 12/29/20 15:35 12/30/20 06:10 White Blood Count 6.3 x10^3/uL (4.0-11.0) 5.7 x10^3/uL (4.0-11.0) Red Blood Count 4.70 x10^6/uL (3.50-5.40) 4.59 x10^6/uL (3.50-5.40) Hemoglobin 14.1 g/dL (12.0-15.5) 13.9 g/dL (12.0-15.5) Hematocrit 44.0 % (36.0-47.0) 43.4 % (36.0-47.0) Mean Corpuscular Volume 94 fL (79-100) 95 fL (79-100) Mean Corpuscular Hemoglobin 30 pg (25-35) 30 pg (25-35) Mean Corpuscular Hemoglobin Concent 32 g/dL (31-37) 32 g/dL (31-37) Red Cell Distribution Width 14.5 % (11.5-14.5) 14.6 % (11.5-14.5) Platelet Count 124 x10^3/uL (140-400) 118 x10^3/uL (140-400) Neutrophils (%) (Auto) 85 % (31-73) 78 % (31-73) Lymphocytes (%) (Auto) 10 % (24-48) 16 % (24-48) Monocytes (%) (Auto) 4 % (0-9) 5 % (0-9) Eosinophils (%) (Auto) 1 % (0-3) 1 % (0-3) Basophils (%) (Auto) 1 % (0-3) 1 % (0-3) Neutrophils # (Auto) 5.4 x10^3/uL (1.8-7.7) 4.4 x10^3/uL (1.8-7.7) Lymphocytes # (Auto) 0.6 x10^3/uL (1.0-4.8) 0.9 x10^3/uL (1.0-4.8) Monocytes # (Auto) 0.2 x10^3/uL (0.0-1.1) 0.3 x10^3/uL (0.0-1.1) Eosinophils # (Auto) 0.0 x10^3/uL (0.0-0.7) 0.1 x10^3/uL (0.0-0.7) Basophils # (Auto) 0.1 x10^3/uL (0.0-0.2) 0.0 x10^3/uL (0.0-0.2) Sodium Level 148 mmol/L (136-145) 151 mmol/L (136-145) Potassium Level 4.1 mmol/L (3.5-5.1) 3.8 mmol/L (3.5-5.1) Chloride Level 112 mmol/L (98-107) 113 mmol/L (98-107) Carbon Dioxide Level 31 mmol/L (21-32) 30 mmol/L (21-32) Anion Gap 5 (6-14) 8 (6-14) Blood Urea Nitrogen 13 mg/dL (7-20) 11 mg/dL (7-20) Creatinine 0.9 mg/dL (0.6-1.0) 0.7 mg/dL (0.6-1.0) Estimated GFR (Cockcroft-Gault) 63.7 85.1 BUN/Creatinine Ratio 14 (6-20) Glucose Level 90 mg/dL (70-99) 74 mg/dL (70-99) Calcium Level 8.9 mg/dL (8.5-10.1) 8.5 mg/dL (8.5-10.1) Magnesium Level 2.4 mg/dL (1.8-2.4) 2.5 mg/dL (1.8-2.4) Total Bilirubin 1.4 mg/dL (0.2-1.0) Aspartate Amino Transf (AST/SGOT) 21 U/L (15-37) Alanine Aminotransferase (ALT/SGPT) 21 U/L (14-59) Alkaline Phosphatase 185 U/L (46-116) Total Protein 6.8 g/dL (6.4-8.2) Albumin 3.7 g/dL (3.4-5.0) Albumin/Globulin Ratio 1.2 (1.0-1.7) Phosphorus Level 3.0 mg/dL (2.6-4.7) Triglycerides Level 95 mg/dL (0-150) Cholesterol Level 221 mg/dL (0-200) LDL Cholesterol, Calculated 137 mg/dL (0-100) VLDL Cholesterol, Calculated 19 mg/dL (0-40) Non-HDL Cholesterol Calculated 156 mg/dL (0-129) HDL Cholesterol 65 mg/dL (40-60) Cholesterol/HDL Ratio 3.4 Laboratory Tests Test 12/30/20 06:10 White Blood Count 5.7 x10^3/uL (4.0-11.0) Red Blood Count 4.59 x10^6/uL (3.50-5.40) Hemoglobin 13.9 g/dL (12.0-15.5) Hematocrit 43.4 % (36.0-47.0) Mean Corpuscular Volume 95 fL (79-100) Mean Corpuscular Hemoglobin 30 pg (25-35) Mean Corpuscular Hemoglobin Concent 32 g/dL (31-37) Red Cell Distribution Width 14.6 % (11.5-14.5) Platelet Count 118 x10^3/uL (140-400) Neutrophils (%) (Auto) 78 % (31-73) Lymphocytes (%) (Auto) 16 % (24-48) Monocytes (%) (Auto) 5 % (0-9) Eosinophils (%) (Auto) 1 % (0-3) Basophils (%) (Auto) 1 % (0-3) Neutrophils # (Auto) 4.4 x10^3/uL (1.8-7.7) Lymphocytes # (Auto) 0.9 x10^3/uL (1.0-4.8) Monocytes # (Auto) 0.3 x10^3/uL (0.0-1.1) Eosinophils # (Auto) 0.1 x10^3/uL (0.0-0.7) Basophils # (Auto) 0.0 x10^3/uL (0.0-0.2) Sodium Level 151 mmol/L (136-145) Potassium Level 3.8 mmol/L (3.5-5.1) Chloride Level 113 mmol/L (98-107) Carbon Dioxide Level 30 mmol/L (21-32) Anion Gap 8 (6-14) Blood Urea Nitrogen 11 mg/dL (7-20) Creatinine 0.7 mg/dL (0.6-1.0) Estimated GFR (Cockcroft-Gault) 85.1 Glucose Level 74 mg/dL (70-99) Calcium Level 8.5 mg/dL (8.5-10.1) Phosphorus Level 3.0 mg/dL (2.6-4.7) Magnesium Level 2.5 mg/dL (1.8-2.4) Triglycerides Level 95 mg/dL (0-150) Cholesterol Level 221 mg/dL (0-200) LDL Cholesterol, Calculated 137 mg/dL (0-100) VLDL Cholesterol, Calculated 19 mg/dL (0-40) Non-HDL Cholesterol Calculated 156 mg/dL (0-129) HDL Cholesterol 65 mg/dL (40-60) Cholesterol/HDL Ratio 3.4 Brief Hospital Course Ms. Wellington is a 60 old female who presented with syncope. Consultation was placed to cardiology. CT head without acute findings. Orthostatic vitals negative. No acute events on telemetry. She has noted history of myotonic dystrophy and chronic LBBB. Echocardiogram showed normal left ventricular systolic function with ejection fraction 60 to 65%, normal LV segmental wall motion, estimated PAP 36 mmHg. Following echocardiogram read patient was stable for discharge home with family care. Discharge Information Condition at Discharge: Stable Follow Up: Weeks Disposition/Orders: D/C to Home Scheduled Cyanocobalamin (Vitamin B-12) (B-12) 500 Mcg Tablet, 1 TAB PO BID for supplement for 30 Days, #60 Ref 0 (Reported) Entered as Reported by: DONATO DUARTE RN on 12/30/20 0100 Last Action: Converted on 12/30/20 164 by Cristiano Zazueta Folic Acid (Folic Acid) 0.8 Mg Capsule, 1 MG PO DAILY for supplement, (Reported) Entered as Reported by: DONATO DUARTE RN on 12/30/2099 Last Action: Converted on 12/30/201641 [facility] Vitamin D3/Vitamin K2 (D3 + K2 Dots 1,000 Units Tab) 1 Each Tab.rapdis, 1 TAB PO DAILY for supplement for 30 Days, #30 Ref 0 (Reported) Entered as Reported by: DONATO DUARTE RN on 12/30/2099 Last Action: Converted on 12/30/201641 by Cristiano Zazueta Scheduled PRN Diazepam (Diazepam) 5 Mg Tablet, 2.5 MG PO BID PRN for ANXIETY, (Reported) Entered as Reported by: DONATO DUARTE RN on 12/30/2099 Last Action: Continued on 12/30/201641 [facility] Loperamide Hcl (Loperamide) 2 Mg Tablet, 2 MG PO Q6HRS PRN for DIARRHEA, (Reported) Entered as Reported by: DONATO DUARTE RN on 12/30/2099 Last Action: New Order on 12/30/2099 by DONATO DUARTE RN Ondansetron (Ondansetron Odt) 4 Mg Tab.rapdis, 4 MG PO BID PRN for NAUSEA, (Reported) Entered as Reported by: DONATO DUARTE RN on 12/30/2099 Last Action: Continued on 12/30/201641 [facility] [place] (Spiriva) 18 Mcg Cap.w.dev, 1 CAP IH DAILY PRN for SHORTNESS OF BREATH, #30 Ref 3 (Reported) Entered as Reported by: DONATO DUARTE RN on 12/30/2099 Last Action: New Order on 12/30/2099 by DONATO DUARTE RN Justicifation of Admission Dx: Justifications for Admission: Justification of Admission Dx: Yes (Syncope) AZUCENA DILLARD MD Dec 30, 2020 19:39
[2020-12-30] MEDS ORDERED: CYANOCOBALAMIN (VITAMIN B-12) 1,000 MCG TABLET. PO SCH (21:00)
[2020-12-31] MEDS ORDERED: FOLIC ACID 1 MG TABLET. PO SCH (09:00)
[2020-12-31] MEDS ORDERED: CHOLECALCIFEROL (VITAMIN D3) 1,000 UNIT TABLET PO SCH (09:00)
== END 2020-12-30 18:30 | disposition home or self-care (01) | DRG 89 ==
LOC: ER 14:26 → ED HOLD 19:49 → OBSVTOIN 19:50 → 2 NORTH 21:46
PROVIDERS: ADMIT Internal Medicine; ATTEND Internal Medicine
DX: S06.0X9A Concussion with loss of consciousness of unspecified duration, initial encounter (principal); E87.0 Hyperosmolality and hypernatremia; J98.11 Atelectasis; S01.01XA Laceration without foreign body of scalp, initial encounter; E78.5 Hyperlipidemia, unspecified; G71.11 Myotonic muscular dystrophy; I44.7 Left bundle-branch block, unspecified; Z83.3 Family history of diabetes mellitus; Z87.891 Personal history of nicotine dependence; Z98.51 Tubal ligation status; F41.9 Anxiety disorder, unspecified; Z88.2 Allergy status to sulfonamides; X58.XXXA Exposure to other specified factors, initial encounter; Y93.89 Activity, other specified; Y92.89 Other specified places as the place of occurrence of the external cause; Y99.8 Other external cause status
CPT/HCPCS: 12002; 36415; 70450; 71045; 72125; 80048; 80053; 80061; 83735; 84100; 85025; 93005; 93306; 94660; 96360; 99285; G0379; J2405; J3490; J7030; 97530-GP; 97535-GO; G0378

== ENCOUNTER 2021-01-08 11:21 | Emergency (ER) | payer OTHER ==
[~2021-01-08] VITALS: Ht 162.6 cm; Wt 79.5 kg
[~2021-01-08 11:21] MED LIST: CYAN500T17 PO; DIAZ5TAB4 PO; FOLI0.8C PO; LOPE2TAB27 PO; ONDA4TAB12 PO; TIOT18CA IH; VITA1TAB31 PO
[2021-01-08 11:39] VITALS: BP 140/79
--- NOTE | 2021-01-08 12:05 | PHYS DOC ---
Past Medical History Past Medical History: Anxiety, Other Additional Past Medical Histor: myotonic dystrophy, LBBB, tremors Past Surgical History: Tubal ligation, Other Additional Past Surgical Histo: r facial tumor, laparascopy Smoking Status: Former Smoker Alcohol Use: None General Adult EDM: Chief Complaint: SUTURE/STAPLE REMOVAL HPI: HPI: Patient is a 60 year old female who presents to the ED today for staple removal from posterior scalp, gabino have been in for 10 days, denies any issues with the wound healing Review of Systems: Review of Systems: Constitutional: Denies fever or chills. [] Musculoskeletal: Denies back pain or joint pain. [] Integument: Visit for staple removal Neurologic: Denies headache, focal weakness or sensory changes. [] Psychiatric: Denies depression or anxiety. [] Heart Score: C/O Chest Pain: N/A Risk Factors: Risk Factors: DM, Current or recent (<one month) smoker, HTN, HLP, family history of CAD, obesity. Risk Scores: Score 0 - 3: 2.5% MACE over next 6 weeks - Discharge Home Score 4 - 6: 20.3% MACE over next 6 weeks - Admit for Clinical Observation Score 7 - 10: 72.7% MACE over next 6 weeks - Early Invasive Strategies Allergies: Allergies: Allergies Coded Allergies Type Severity Reaction Last Updated Verified Sulfa (Sulfonamide Antibiotics) Allergy Intermediate 12/29/20 Yes Physical Exam: PE: Constitutional: Well developed, well nourished, no acute distress, non-toxic appearance. [] Skin: Posterior scalp with 6 gabino. Patient reports 1 fell out. Laceration site is well approximated, no signs of infection Back: No tenderness, no CVA tenderness. [] Extremities: No tenderness, no cyanosis, no clubbing, ROM intact, no edema. [] Neurologic: Alert and oriented X 3, normal motor function, normal sensory function, no focal deficits noted. [] Psychologic: Affect normal, judgement normal, mood normal. [] Current Patient Data: Vital Signs: Vital Signs Date Time Temp Pulse Resp B/P (MAP) Pulse Ox O2 Delivery O2 Flow Rate FiO2 01/08/21 11:39 97.5 70 20 140/79 (99) 93 Room Air 97.5 EKG: EKG: [] Radiology/Procedures: Radiology/Procedures: [] Course & Med Decision Making: Course & Med Decision Making Pertinent Labs and Imaging studies reviewed. (See chart for details) This is a 60-year-old female patient presented to the ED today for staple removal from posterior scalp, gabino have been in for 10 days, laceration site is well approximated, no signs of infection to the laceration site. 6 gabino were removed from the laceration site patient reports one staple fell off. Discharge to home. Dragon Disclaimer: Dragon Disclaimer: This electronic medical record was generated, in whole or in part, using a voice recognition dictation system. Departure Departure Impression: Primary Impression: Removal of staple Disposition: HOME / SELF CARE / HOMELESS Condition: STABLE Referrals: LORI XAVIER MD (PCP) Follow-up with your doctor in 1 to 2 weeks Patient Instructions: Staple Removal, Care After Additional Instructions: Your gabino were removed from the scalp. Keep the area clean and dry. Follow- up with your doctor in 1-2 weeks KALPANA THOMAS APRN January 08, 2021 12:05
== END 2021-01-08 12:20 | disposition home or self-care (01) ==
LOC: ER 11:21
DX: S01.01XD Laceration without foreign body of scalp, subsequent encounter (principal); Z87.891 Personal history of nicotine dependence; Z88.2 Allergy status to sulfonamides; X58.XXXD Exposure to other specified factors, subsequent encounter
CPT/HCPCS: 99281

== ENCOUNTER 2021-03-29 17:27 | Emergency (ER) | payer OTHER ==
[~2021-03-29] VITALS: Ht 162.6 cm; Wt 77.2 kg
[2021-03-29] MEDS ORDERED: IV NORMAL SALINE 1000ML BAG 1,000 ML IV ONE (18:45)
--- NOTE | 2021-03-29 19:05 | EKG ---
[facility] [address] [place] [address] Test Date: 2021-03-29 Test Time: 17:40:32 Pat Name: DONALD CREWS Department: Room: Gender: F Electrical Supervisor: : 1960 Requested By: MICHELLE SOL Order Number: [id number] Reading MD: Measurements Intervals [place] Rate: 65 P: 0 [place]: 176 QRS: -32 QRSD: 130 T: 43 QT: 462 QTc: 486 Interpretive Statements SINUS RHYTHM ABNORMAL LEFT AXIS DEVIATION LEFT BUNDLE BRANCH BLOCK ABNORMAL ECG RI6.02 No previous ECG available for comparison
--- NOTE | 2021-03-29 19:05 | PHYS DOC ---
Past Medical History Past Medical History: Anxiety, Other Additional Past Medical Histor: myotonic dystrophy,LBBB,tremors Past Surgical History: Tubal ligation, Other Additional Past Surgical Histo: r facial tumor, laparascopy Smoking Status: Never Smoker Additional Information: Secondhand smoke exposure Alcohol Use: None Drug Use: None General Adult EDM: Chief Complaint: DIZZY/LIGHT HEADED HPI: HPI: Patient is a 61 year old female who presents with dizziness/lightheadedness. Reports an episode of dizziness that lasted for 45 mins this afternoon. It began while sitting down and the patient felt too disoriented to stand or walk at that time. Patient denies falling or LOC. Currently the patient reports feeling slightly lightheaded and that her dizziness has resolved. The patient has a history of myotonic dystophy and chronic diarrhea. The patient also reports feeling anxious after losing her last week. Reports headache and runny nose. Denies vision changes, chest pain, palpitations, or any paresthesia at this time. Review of Systems: Review of Systems: Constitutional: Denies fever or chills Eyes: Denies redness or eye pain HENT: Reports nasal congestion; Denies sore throat Respiratory: Reports cough; Denies shortness of breath Cardiovascular: Denies chest pain or palpitations GI: Denies abdominal pain, nausea, or vomiting : Denies dysuria or hematuria Musculoskeletal: Denies back pain or joint pain Integument: Reports rash psoriatic on face; Denies any skin lesions Neurologic: Reports dizziness and headache; Denies focal weakness or sensory changes Complete systems were reviewed and found to be within normal limits, except as documented in this note. Heart Score: C/O Chest Pain: N/A Current Medications: Current Medications Medications (Trade) Dose Ordered Sig/Anand Start Time Stop Time Status Last Admin Dose Admin Sodium Chloride 1,000 ml @ 1,000 mls/hr 1X ONCE 03/29/21 18:45 03/29/21 19:44 03/29/21 18:43 1,000 MLS/HR Allergies: Allergies: Allergies Coded Allergies Type Severity Reaction Last Updated Verified Sulfa (Sulfonamide Antibiotics) Allergy Intermediate 12/29/20 Yes Physical Exam: PE: Constitutional: Well developed, well nourished, no acute distress, non-toxic appearance HENT: Normocephalic, atraumatic Eyes: PERRL, EOMI, conjunctiva normal, no discharge Neck: Normal range of motion, no tenderness, supple Lungs & Thorax: No respiratory distress, equal chest rise and fall Abdomen: Soft, no tenderness Skin: Warm, dry, no erythema, psoriatic related rash on face Back: No tenderness, no CVA tenderness Extremities: No tenderness, ROM intact, no edema Neurologic: Alert and oriented X 3, decreased muscle strength in BL lower extremities, normal sensory function, no focal deficits noted Psychologic: Affect normal, judgment normal Current Patient Data: Vital Signs: Vital Signs Date Time Temp Pulse Resp B/P (MAP) Pulse Ox O2 Delivery O2 Flow Rate FiO2 03/29/21 17:27 96.3 69 17 116/79 (99) 95 Room Air 96.3 EKG: EK03/29/21 @ 1740 sinus rhythm, 65 bpm, QRS 130 ms, QT/QTc 462/486 ms, left axis deviation, possible LBBB, no ST segment changes Radiology/Procedures: Radiology/Procedures: PROCEDURE: CT HEAD WO CONTRAST Exam: CT head INDICATION: Dizziness TECHNIQUE: Sequential axial images through the head were obtained without the administration of IV contrast. Exposure: One or more of the following in the visualized dose reduction techniques were utilized for this examination: 1. Automated exposure control 2. Adjustment of the MA and/or KV according to patient size 3. Use of iterative of reconstructive technique Comparisons: 12/29/2020 FINDINGS: No focal parenchymal lesion or hemorrhage is identified. There is no midline shift or sulcal effacement. Moderate patchy hypodensity in the periventricular white matter, similar prior exam. No acute vascular territory infarction is identified. Wasserman-white distinction is preserved. The ventricular system is within normal limits without compression hydrocephalus. The basal cisterns are well maintained. The visualized portions of the paranasal sinuses and mastoid air cells are well-pneumatized. No acute fractures. IMPRESSION: No acute intracranial abnormality. Electronically signed by: Warren Delgadillo MD (03/29/2021 7:19 PM) [facility] Course & Med Decision Making: Course & Med Decision Making Pertinent Labs and Imaging studies reviewed. (See chart for details) Patient presented for an episode of dizziness/lightheadedness and nausea. Jo montano has a history of anxiety which has worsened after losing her last week. Patient also reported experiencing chronic nausea. CT head no contrast show no acute findings. EKG showed sinus rhythm and evidence of LBBB which the patient reports is being followed by cardiology. UA was unremarkable. Patient reported feeling well enough to go home. Zofran was prescribed and the patient was advised to continue follow up with cardiology. Patient stable for discharge with outpatient follow-up with PCP. Discussed findings and plan with patient, who acknowledges understanding and agreement. Dragon Disclaimer: Dragon Disclaimer: This electronic medical record was generated, in whole or in part, using a voice recognition dictation system. Departure Departure Impression: Primary Impression: Dizziness Additional Impressions: Nausea Anxiety Disposition: HOME / SELF CARE / HOMELESS Condition: STABLE Referrals: LORI XAVIER MD (PCP) Patient Instructions: Anxiety and Panic Attacks, [id number], Dizziness, [id number], Nausea, Adult, [id number] Scripts Ondansetron (ONDANSETRON ODT) 4 Mg Tab.rapdis 1 TAB PO PRN Q6-8HRS PRN for NAUSEA, #16 TAB Prov: MICHELLE SOL DO 03/29/21 MICHELLE SOL DO Mar 29, 2021 19:05
[2021-03-29 19:11] LABS: BASO # 0.1 x10^3/uL (0.0-0.2); BASO % 1 % (0-3); EOS % 1 % (0-3); HEMATOCRIT 40.8 % (36.0-47.0); HEMOGLOBIN 13.1 g/dL (12.0-15.5); LYMPH # 0.7 x10^3/uL (1.0-4.8); LYMPH % 15 % (24-48); MEAN CORPUSCULAR HEMOGLOBIN 30 pg (25-35); MEAN CORPUSCULAR HGB CONC 32 g/dL (31-37); MEAN CORPUSCULAR VOLUME 94 fL (79-100); MONO # 0.3 x10^3/uL (0.0-1.1); MONO % 6 % (0-9); NEUT # 3.7 x10^3/uL (1.8-7.7); NEUT % 77 % (31-73); PLATELET COUNT 125 x10^3/uL (140-400); RED BLOOD COUNT 4.37 x10^6/uL (3.50-5.40); RED CELL DISTRIBUTION WIDTH 14.4 % (11.5-14.5); WHITE BLOOD COUNT 4.8 x10^3/uL (4.0-11.0)
[2021-03-29 19:14] LABS: CREATININE 0.7 mg/dL (0.6-1.0); GFR 84.8; POTASSIUM 4.3 mmol/L (3.5-5.1)
[2021-03-29 19:19] LABS: ALBUMIN 3.2 g/dL (3.4-5.0); ALBUMIN/GLOBULIN RATIO 1.3 (1.0-1.7); MAGNESIUM 2.9 mg/dL (1.8-2.4); TOTAL BILIRUBIN 0.7 mg/dL (0.2-1.0); TOTAL PROTEIN 5.7 g/dL (6.4-8.2)
--- NOTE | 2021-03-29 19:21 | RAD ---
Exam: CT head INDICATION: Dizziness TECHNIQUE: Sequential axial images through the head were obtained without the administration of IV co ntrast. Exposure: One or more of the following in the visualized dose reduction techniques were utilized for this examination: 1. Automated exposure control 2. Adjustment of the MA and/or KV according to patient size 3. Use of iterative of reconstructive technique Comparisons: 12/29/2020 FINDINGS: No focal parenchymal lesion or hemorrhage is identified. There is no midline shift or sulcal effaceme nt. Moderate patchy hypodensity in the periventricular white matter, similar prior exam. No acute vascula r territory infarction is identified. Wasserman-white distinction is preserved. The ventricular system is within normal limits without compression hydrocephalus. The basal cisterns are well maintained. The visualized portions of the paranasal sinuses and mastoid air cells are well-pneumatized. No acute fractures. IMPRESSION: No acute intracranial abnormality. Electronically signed by: Warren Delgadillo MD (03/29/2021 7:19 PM) [facility]
[2021-03-29 21:14] LABS: BACTERIA,URINE MANY /HPF (0-FEW); BILIRUBIN,URINE NEGATIVE (NEG); CLARITY,URINE CLEAR; COLOR,URINE YELLOW; NITRITE,URINE NEGATIVE (NEG); PH,URINE 8.5 (<5.0-8.0); PROTEIN,URINE NEGATIVE (NEG-TRACE); RBC,URINE 0 /HPF (0-2); UROBILINOGEN,URINE 0.2 mg/dL (0.2 mg/dL)
[2021-03-29] MEDS ORDERED: ONDA4TAB12 PO (22:09)
[2021-03-29 22:30] VITALS: BP 138/75
== END 2021-03-29 22:40 | disposition home or self-care (01) ==
LOC: ER 17:27
DX: F41.9 Anxiety disorder, unspecified (principal); R42 Dizziness and giddiness; Z77.22 Contact with and (suspected) exposure to environmental tobacco smoke (acute) (chronic); Z88.2 Allergy status to sulfonamides
CPT/HCPCS: 36415; 70450; 80053; 81001; 82553; 83735; 84484; 85025; 87086; 93005; 96360; 96361; 99285; J7030